=== PATIENT | female | born 1945 | race Two or more races ===

== ENCOUNTER 2017-09-23 15:56 | Emergency (ER) | payer SELFPAY ==
[2017-09-23 16:38] VITALS: BP 131/70; PULSE 92; RESP 18; TEMP 97.9; O2SAT 97
--- NOTE | 2017-09-23 17:34 | ED PDOC ---
Arrival/HPI - General Chief Complaint: Cough, Cold, Congestion Time Seen by Provider: 09/23/17 16:10 Historian: Patient - History of Present Illness Narrative History of Present Illness (Text): 09/23/17 17:29 A 72 year old female sent into the emergency department by PMD, Dr. Nix, for jaundice appearance and productive cough. Patient is a poor historian. She does not offer any additional information or complaints. Patient is refusing to be seen or evaluated here in the emergency room. I personally explained to the patient the importance of being treated here today. Patient continued to refuse treatment and walked out of the emergency room without any paperwork. Time/Duration: Prior to Arrival Symptom Course: Unchanged Quality: Other Context: Other (PMDs office) Past Medical History - Provider Review Nursing Documentation Reviewed: Yes - Infectious Disease Hx of Infectious Diseases: None - Reproductive Menopause: Yes - Cardiac Hx Hypertension: Yes - Psychiatric Hx Substance Use: No - Anesthesia Hx Anesthesia: No Hx Anesthesia Reactions: No Family/Social History - Physician Review Nursing Documentation Reviewed: Yes Family/Social History: Unknown Family HX Smoking Status: Unknown If Ever Smoked Hx Alcohol Use: No Hx Substance Use: No Allergies/Home Meds Allergies/Adverse Reactions: Allergies chocolate flavor Allergy (Verified 09/23/17 16:38) RASH Home Medications: Home Meds Medication Instructions Recorded Confirmed No Known Home Med 09/23/17 09/23/17 Review of Systems - Review of Systems Systems not reviewed;Unavailable: Uncooperative Physical Exam - Physical Exam Narrative Physical Exam (Text): Patient refused to be examined in the emergency room Vital Signs Reviewed: Yes Vital Signs Temp Pulse Resp BP Pulse Ox 09/23/17 16:33 97.9 F 92 H 18 131/70 97 Temperature: Afebrile Blood Pressure: Hypertensive Pulse: Regular Respiratory Rate: Normal Medical Decision Making ED Course and Treatment: 09/23/17 17:29 Patient refused to be evaluated in the emergency room. I personally explained the importance of being treated today but patient continued to refuse and eloped. Primary physician Dr. Fauzia vasquez, awaiting call back. 09/23/17 18:[address] Cage. He is aware that she walked out and will call her tomorrow for evaluation. - Scribe Statement The provider has reviewed the documentation as recorded by the Tali Hernandez Provider Scribe Attestation: All medical record entries made by the Tali were at my direction and personally dictated by me. I have reviewed the chart and agree that the record accurately reflects my personal performance of the history, physical exam, medical decision making, and the department course for this patient. I have also personally directed, reviewed, and agree with the discharge instructions and disposition. Disposition/Present on Arrival - Present on Arrival Any Indicators Present on Arrival: No History of DVT/PE: No History of Uncontrolled Diabetes: No Urinary Catheter: No History of Decub. Ulcer: No History Surgical Site Infection Following: None - Disposition Have Diagnosis and Disposition been Completed?: Yes Diagnosis: Jaundice Disposition: ELOPEMENT - ER ONLY Disposition Time: 17:20 Condition: UNKNOWN Forms: [employer] (E[place]ian)
== END 2017-09-23 18:33 | disposition left against medical advice (07) ==
LOC: ED 15:56
DX: R17 Unspecified jaundice (principal)